=== PATIENT | female | born 1970 | race Caucasian/White ===

== ENCOUNTER 2019-06-21 13:09 | Outpatient (CLI) | payer OTHER, SELFPAY ==
--- NOTE | 2019-06-21 13:21 | MM_ITS ---
WS: [id number] BILATERAL DIGITAL SCREENING MAMMOGRAPHY WITH CAD CLINICAL INFORMATION: SCREENING HISTORY: Screening mammogram. Chronic left breast lump. COMPARISON: August 03, 2017 TECHNIQUE: Bilateral CC and MLO views. FINDINGS: Since the prior examination interval mammoplasty with breast reduction. The breasts are composed of heterogeneous fibroglandular density tissue, which can limit the detectio n of small underlying mass lesions. Interval development of linear calcifications in the anterior inf erior right breast may be related to recent mammoplasty with fat necrosis. However recommend addition al evaluation of the calcifications right breast with spot compression magnification views with marke rs placed along the surgical scars. Normal left breast. MM/[place] [id number] IMPRESSION: BI-RADS: 0-Incomplete: Need additional imaging evaluation FOLLOW UP: Need Additional Imaging
== END 2019-06-21 13:10 | disposition home or self-care (01) ==
PROVIDERS: Family Provider Family Medicine; PCP Family Medicine; Visit Provider Family Medicine
DX: Z12.31 Encounter for screening mammogram for malignant neoplasm of breast (principal)
CPT/HCPCS: 77067

== ENCOUNTER 2019-07-14 08:32 | Outpatient (CLI) | payer OTHER, SELFPAY ==
--- NOTE | 2019-07-14 08:44 | MM_ITS ---
WS: [id number] RIGHT DIGITAL MAMMOGRAPHY WITH CAD CLINICAL INFORMATION: RT BREAST CALCIFICATIONS HISTORY: Additional views COMPARISON: June 21, 2019, August 03, 2017, July 21, 2016, screening 2014 2015 TECHNIQUE: 4 views of the right breast were obtained. FINDINGS: Recent breast reduction. Scattered fibroglandular densities of the right breast. Sheetlike amorphous calcifications involving the right breast progressed from the prior examinations 2018 and earlier. These are most likely fat n ecrosis and sequelae from recent mammoplasty. These are probably benign and recommend 6 month follow- up to document stability with right diagnostic mammography with spot magnification views. MM/[place] [id number] IMPRESSION: BI-RADS: 3-Probably Benign FOLLOW UP: 6 Month Follow-up
== END 2019-07-14 08:33 | disposition home or self-care (01) ==
LOC: RADSHAW 08:42
PROVIDERS: Family Provider Family Medicine; PCP Family Medicine; Visit Provider Family Medicine
DX: R92.1 Mammographic calcification found on diagnostic imaging of breast (principal)
CPT/HCPCS: 77065

== ENCOUNTER 2020-01-15 09:25 | Outpatient (CLI) | payer OTHER, SELFPAY ==
--- NOTE | 2020-01-15 09:30 | MM_ITS ---
WS: [id number] RIGHT DIGITAL MAMMOGRAPHY WITH CAD CLINICAL INFORMATION: RT BR CALCS HISTORY: Prior mammoplasty COMPARISON: July 14, 2019, February 19, 2020, August 03, 2017, July 21, 2016, TECHNIQUE: 7 views of the right breast were obtained. FINDINGS: Recent history of breast reduction. Scattered fibroglandular densities of the right breast. Again see n are increasing sheetlike amorphous calcifications involving the right breast progressed from previo us. Again these are most likely fat necrosis and sequelae from prior mammoplasty. However, considerin g significant increase since the prior examination, recommend further evaluation with stereotactic gu ided biopsy MM/[place] [id number] IMPRESSION: BI-RADS: 4-Suspicious Finding-Biopsy Should Be Considered FOLLOW UP: Stereotactic Biopsy Recommended
== END 2020-01-15 09:26 | disposition home or self-care (01) ==
LOC: RADSHAW 09:26
PROVIDERS: PCP Family Medicine; Visit Provider Family Medicine
DX: R92.8 Other abnormal and inconclusive findings on diagnostic imaging of breast (principal); R92.1 Mammographic calcification found on diagnostic imaging of breast
CPT/HCPCS: 77065

== ENCOUNTER → 2020-02-17 15:27 | Outpatient (BNVA) | payer OTHER, SELFPAY | PROVIDERS: PCP Family Medicine; Visit Provider Family Medicine | DX: Z20.828 Contact with and (suspected) exposure to other viral communicable diseases (principal) | CPT/HCPCS: 87635 ==

== ENCOUNTER 2020-03-26 11:42 | Outpatient (CLI) | payer OTHER, SELFPAY ==
--- NOTE | 2020-03-26 11:46 | MM_ITS ---
WS: [id number] STEREOTACTIC RIGHT BREAST BIOPSY WITH VACUUM ASSISTANCE HISTORY: ABNORMAL MAMMOGRAM RT BREAST, numerous sheetlike areas of calcifications in the RIGHT breast . The most suspicious area along the inferior breast will be targeted. COMPARISON: 01/15/2020, 06/21/2019, 08/03/2017 Procedure, risks and complications were explained to the patient. Medications and prior radiographs a re reviewed. RIGHT breast calcifications are located. Calcifications are targeted in the craniocaudal projection. The skin is cleansed with ChloraPrep and anesthetized with 1% buffered lidocaine. Deeper soft tissues anesthetized with a combination of lidocaine and epinephrine. Small dermatome is made. Needle advanc ed into the RIGHT breast. Stereotactic imaging reveals appropriate positioning adjacent calcification s. Multiple vacuum-assisted core biopsies are obtained. 2 attempts at achieving adequate calcificatio ns were performed. Calcifications are seen like distribution and are pushed away during the needle in sertion. Both specimens did contain calcifications and the biopsy was thought to be adequate. Post biopsy specimen radiographs reveals numerous calcifications. Biopsy clips are placed in each cavity. Post imaging reveals good placement of the clips. No migratio n. Pressures held for approximately 15 minutes. No bleeding. Dressing applied. Patient discharged with n o complications. There is no bleeding. With any questions or complications patient is to return. MM/[place] [id number] IMPRESSION: 1. Uncomplicated RIGHT breast stereotactic biopsy. 2 separate biopsies were pe rformed to achieve adequate calcifications. 2. Specimen contains numerous calcifications. Pathology: Benign fibroadipose tissue with stromal sclerosis and microcalcifica tions. No malignancy within either specimen. RECOMMENDATION: 6 month diagnostic RIGHT mammogram.
--- NOTE | 2020-03-26 11:46 | MM_ITS ---
WS: [id number] STEREOTACTIC RIGHT BREAST BIOPSY WITH VACUUM ASSISTANCE HISTORY: ABNORMAL MAMMOGRAM RT BREAST, numerous sheetlike areas of calcifications in the RIGHT breast . The most suspicious area along the inferior breast will be targeted. COMPARISON: 01/15/2020, 06/21/2019, 08/03/2017 Procedure, risks and complications were explained to the patient. Medications and prior radiographs a re reviewed. RIGHT breast calcifications are located. Calcifications are targeted in the craniocaudal projection. The skin is cleansed with ChloraPrep and anesthetized with 1% buffered lidocaine. Deeper soft tissues anesthetized with a combination of lidocaine and epinephrine. Small dermatome is made. Needle advanc ed into the RIGHT breast. Stereotactic imaging reveals appropriate positioning adjacent calcification s. Multiple vacuum-assisted core biopsies are obtained. 2 attempts at achieving adequate calcificatio ns were performed. Calcifications are seen like distribution and are pushed away during the needle in sertion. Both specimens did contain calcifications and the biopsy was thought to be adequate. Post biopsy specimen radiographs reveals numerous calcifications. Biopsy clips are placed in each cavity. Post imaging reveals good placement of the clips. No migratio n. Pressures held for approximately 15 minutes. No bleeding. Dressing applied. Patient discharged with n o complications. There is no bleeding. With any questions or complications patient is to return. MM/[place] [id number] IMPRESSION: 1. Uncomplicated RIGHT breast stereotactic biopsy. 2 separate biopsies were pe rformed to achieve adequate calcifications. 2. Specimen contains numerous calcifications. Pathology: Benign fibroadipose tissue with stromal sclerosis and microcalcifica tions. No malignancy within either specimen. RECOMMENDATION: 6 month diagnostic RIGHT mammogram.
--- NOTE | 2020-03-26 11:46 | MM_ITS ---
WS: [id number] STEREOTACTIC RIGHT BREAST BIOPSY WITH VACUUM ASSISTANCE HISTORY: ABNORMAL MAMMOGRAM RT BREAST, numerous sheetlike areas of calcifications in the RIGHT breast . The most suspicious area along the inferior breast will be targeted. COMPARISON: 01/15/2020, 06/21/2019, 08/03/2017 Procedure, risks and complications were explained to the patient. Medications and prior radiographs a re reviewed. RIGHT breast calcifications are located. Calcifications are targeted in the craniocaudal projection. The skin is cleansed with ChloraPrep and anesthetized with 1% buffered lidocaine. Deeper soft tissues anesthetized with a combination of lidocaine and epinephrine. Small dermatome is made. Needle advanc ed into the RIGHT breast. Stereotactic imaging reveals appropriate positioning adjacent calcification s. Multiple vacuum-assisted core biopsies are obtained. 2 attempts at achieving adequate calcificatio ns were performed. Calcifications are seen like distribution and are pushed away during the needle in sertion. Both specimens did contain calcifications and the biopsy was thought to be adequate. Post biopsy specimen radiographs reveals numerous calcifications. Biopsy clips are placed in each cavity. Post imaging reveals good placement of the clips. No migratio n. Pressures held for approximately 15 minutes. No bleeding. Dressing applied. Patient discharged with n o complications. There is no bleeding. With any questions or complications patient is to return. MM/MM surgical specimen RT IMPRESSION: 1. Uncomplicated RIGHT breast stereotactic biopsy. 2 separate biopsies were pe rformed to achieve adequate calcifications. 2. Specimen contains numerous calcifications. Pathology: Benign fibroadipose tissue with stromal sclerosis and microcalcifica tions. No malignancy within either specimen. RECOMMENDATION: 6 month diagnostic RIGHT mammogram.
== END 2020-03-26 11:43 | disposition home or self-care (01) ==
LOC: RADSHAW 11:44
PROVIDERS: PCP Family Medicine; Visit Provider Family Medicine
DX: R92.8 Other abnormal and inconclusive findings on diagnostic imaging of breast (principal); R92.1 Mammographic calcification found on diagnostic imaging of breast
CPT/HCPCS: 19081; 77065; 88305

== ENCOUNTER 2020-09-23 11:24 | Outpatient (CLI) | payer OTHER, SELFPAY ==
--- NOTE | 2020-09-23 11:29 | MM_ITS ---
WS: [id number] DIAGNOSTIC RIGHT DIGITAL MAMMOGRAM WITH CAD HISTORY: RT BREAST ABNORMAL MAMMOGRAM COMPARISON: 03/26/2020, 01/15/2020, 07/14/2019 06/21/2019 Technique: CC, MLO and ML views. Spot compression RIGHT CC. Breast composition: The breasts are heterogeneously dense, which may obscure small masses. Very coar se calcifications are noted throughout the RIGHT breast. These calcifications were previously biopsie d. There is a biopsy clip noted in the medial inferior breast. These calcifications are very coarse a nd diffuse. Favor these are probably dystrophic calcifications associated with prior breast surgery o r trauma. No soft tissue mass associated with the calcifications. MM/[place] [id number] IMPRESSION: BI-RADS: 3-Probably Benign FOLLOW UP: 6 Month Follow-up These calcifications should be followed for a total of 2 years, every 6 months to document continued stability. Patient also needs a LEFT mammogram. Bilateral mammogram should be performed.
== END 2020-09-23 11:25 | disposition home or self-care (01) ==
LOC: RADSHAW 11:28
PROVIDERS: PCP Family Medicine; Visit Provider Family Medicine
DX: R92.8 Other abnormal and inconclusive findings on diagnostic imaging of breast (principal); R92.1 Mammographic calcification found on diagnostic imaging of breast
CPT/HCPCS: 77065

== ENCOUNTER 2021-03-31 10:59 | Outpatient (CLI) | payer OTHER, SELFPAY ==
--- NOTE | 2021-03-31 11:04 | MM_ITS ---
WS: [id number] BILATERAL DIGITAL DIAGNOSTIC MAMMOGRAM MAMMOGRAPHY WITH CAD CLINICAL INFORMATION: ABNORMAL MAMMOGRAM RT BREAST CALCS HISTORY: History of breast reduction. History of prior right stereotactic biopsy. COMPARISON: September 23, 2020, March 26, 2020 TECHNIQUE: Bilateral CC, MLO, and ML views. FINDINGS: The breasts are composed of heterogeneous fibroglandular density, which can limit the detection of sm all underlying mass lesions. Stable coarse calcifications throughout the right breast likely related to prior breast reduction. History of prior right stereotactic biopsy with biopsy clip in the inferio r medial breast. Recommend continued surveillance. New clusters of heterogeneous calcifications about the LEFT areola along the posterior nipple line booker ve developed since June 21, 2019. Recommend further characterization with spot magnification view s as these are new from previous. MM/[place] [id number] IMPRESSION: BI-RADS: 0-Incomplete: Need additional imaging evaluation FOLLOW UP: Need Additional Imaging Recommend LEFT diagnostic mammography with spot magnification views of the NEW calcifications.
== END 2021-03-31 11:00 | disposition home or self-care (01) ==
LOC: RADSHAW 11:02
PROVIDERS: PCP Family Medicine; Visit Provider Family Medicine
DX: R92.1 Mammographic calcification found on diagnostic imaging of breast (principal)
CPT/HCPCS: 77066

== ENCOUNTER 2021-04-10 11:02 | Outpatient (CLI) | payer OTHER, SELFPAY ==
--- NOTE | 2021-04-10 11:14 | MM_ITS ---
WS: [id number] LEFT DIGITAL MAMMOGRAPHY WITH CAD CLINICAL INFORMATION: ABNORMAL MAMMOGRAM LT BREAST COMPARISON: March 31, 2021. September 23, 2020. June 21, 2019. TECHNIQUE: 3 views of the left breast were obtained. FINDINGS: History of breast reduction. The left breast is composed of heterogeneous fibroglandular density tissue, which can limit the detec tion of small underlying mass lesions. Again seen are several new clusters of heterogeneous calcifica tions about the left areola and along the posterior nipple line. These are all new since June 21, 2019. Spot magnification views demonstrate numerous heterogeneous and somewhat amorphous clusters of calcifications. Some of these have a similar morphology and appearance compared to the diffuse right breast calcifications. These are probably benign and most likely related to prior breast reduction. Recommend 6 month follow -up to document stability for a period of 2 years. MM/[place] [id number] IMPRESSION: BI-RADS: 3-Probably Benign FOLLOW UP: 6 Month Follow-up RECOMMEND 6 MONTH FOLLOW-UP LEFT BREAST DIAGNOSTIC MAMMOGRAPHY WITH SPOT MAGNIF ICATION VIEWS
== END 2021-04-10 11:03 | disposition home or self-care (01) ==
LOC: RADSHAW 11:10
PROVIDERS: PCP Family Medicine; Visit Provider Family Medicine
DX: R92.8 Other abnormal and inconclusive findings on diagnostic imaging of breast (principal)
CPT/HCPCS: 77065

== ENCOUNTER 2021-10-22 15:15 | Outpatient (CLI) | payer OTHER, SELFPAY ==
--- NOTE | 2021-10-22 15:44 | MM_ITS ---
WS: [id number] BILATERAL 3D TOMOSYNTHESIS DIGITAL SCREENING MAMMOGRAPHY WITH CAD CLINICAL INFORMATION: SCREENING HISTORY: Screening mammogram. History of benign RIGHT breast stereotactic biopsy COMPARISON: April 10, 2021 and March 31, 2021. September 23, 2020 TECHNIQUE: Bilateral CC and MLO views. FINDINGS: History of bilateral breast reduction. The breasts are composed of heterogeneous fibroglandular density tissue, which can limit the detectio n of small underlying mass lesions. Again seen are diffuse heterogeneous RIGHT breast calcifications similar to the prior examination likely due to prior breast reduction. Stable clustered calcification s subareolar LEFT breast. Stereotactic biopsy markers inner RIGHT breast. No other suspicious findings. MM/[place] [id number] IMPRESSION: BI-RADS: 3-Probably Benign FOLLOW UP: 6 Month Follow-up Recommend 6 month follow-up bilateral diagnostic mammography to confirm stabili ty of the calcifications for at least 18-24 months. (New left-sided calcifications were noted April 10, 2021 Right-sided calcifi cations biopsied March 26, 2020)
== END 2021-10-22 15:16 | disposition home or self-care (01) ==
LOC: RAD 15:17
PROVIDERS: PCP Family Medicine; Visit Provider Family Medicine
DX: Z12.31 Encounter for screening mammogram for malignant neoplasm of breast (principal)
CPT/HCPCS: 77063; 77067

== ENCOUNTER 2022-04-09 12:40 | Outpatient (CLI) | payer OTHER, SELFPAY ==
--- NOTE | 2022-04-09 12:57 | MM_ITS ---
WS: [id number] BILATERAL 3D TOMOSYNTHESIS DIGITAL SCREENING MAMMOGRAPHY WITH CAD CLINICAL INFORMATION: R92.8 - Other abnormal and inconclusive findings on diagn... HISTORY: Six-month follow-up. History of breast reduction.. COMPARISON: October 22, 2021. April 10, 2021. March 31, 2021. September 23, 2020. TECHNIQUE: Bilateral CC and MLO views. FINDINGS: The breasts are composed of heterogeneous fibroglandular density tissue, which can limit the detectio n of small underlying mass lesions. Again seen are diffuse heterogeneous RIGHT breast calcifications similar to the prior examinations likely due to breast reduction as previously discussed. Stable clus tered calcifications subareolar LEFT breast. History of prior stereotactic biopsy RIGHT inner breast. Associated biopsy markers. No significant interval changes compared to previous. Recommend 6 month follow-up LEFT diagnostic mammography to confirm stability of the calcifications for at least 18-24 months. RIGHT breast calcifications are predominantly stable compared to March 26, 2020. MM/[place] [id number] IMPRESSION: BI-RADS: 3-Probably Benign FOLLOW UP: 6 Month Follow-up Recommend additional six-month follow-up LEFT breast diagnostic mammography to confirm stability of the subareolar clustered LEFT breast calcifications. (New left-sided calcifications were noted April 10, 2021 Right-sided calcifi cations biopsied March 26, 2020)
== END 2022-04-09 12:41 | disposition home or self-care (01) ==
LOC: RAD 12:41
PROVIDERS: PCP Family Medicine; Visit Provider Nurse Practitioner Women's Health
DX: R92.8 Other abnormal and inconclusive findings on diagnostic imaging of breast (principal); R92.1 Mammographic calcification found on diagnostic imaging of breast
CPT/HCPCS: 77062; G0279

== ENCOUNTER → 2022-10-15 08:01 | Outpatient (BNVA) | payer OTHER, SELFPAY | PROVIDERS: PCP Family Medicine; Visit Provider Student in an Organized Health Care Education/Training Program | DX: M18.0 Bilateral primary osteoarthritis of first carpometacarpal joints (principal); M77.12 Lateral epicondylitis, left elbow | CPT/HCPCS: 73080; 73130 ==

== ENCOUNTER 2022-10-29 14:59 | Outpatient (CLI) | payer OTHER, SELFPAY ==
--- NOTE | 2022-10-29 15:30 | MM_ITS ---
WS: [id number] LEFT 3D TOMOSYNTHESIS DIGITAL MAMMOGRAPHY WITH CAD CLINICAL INFORMATION: abnormal mammagram COMPARISON: April 09, 2022 TECHNIQUE: 3 views of the left breast were obtained. FINDINGS: History of bilateral breast reduction with coarse calcifications The left breast is composed of heterogeneous fibroglandular density tissue, which can limit the detec tion of small underlying mass lesions. Stable retroareolar clustered calcifications. No significant c hanges compared to 04/23. Recommend continued surveillance with six-month follow-up. Additional scatt ered calcifications LEFT breast are unchanged. No other suspicious findings. MM/[place] [id number] IMPRESSION: BI-RADS: 3-Probably Benign FOLLOW UP: 6 Month Follow-up Recommend 6 month follow-up LEFT diagnostic mammography with spot magnification views of the retroareolar calcifications LEFT side clustered subareolar calcifications were originally noted April. Recommend continued follow-up until 24 month stability
== END 2022-10-29 15:00 | disposition home or self-care (01) ==
PROVIDERS: PCP Family Medicine; Visit Provider Family Medicine
DX: R92.8 Other abnormal and inconclusive findings on diagnostic imaging of breast (principal)
CPT/HCPCS: 77061; G0279

== ENCOUNTER → 2023-02-05 08:08 | Outpatient (BNVA) | payer OTHER, SELFPAY | PROVIDERS: PCP Family Medicine; Visit Provider Family Medicine | DX: Z00.00 Encounter for general adult medical examination without abnormal findings (principal) | CPT/HCPCS: 80053; 80061; 84443 ==

== ENCOUNTER 2023-03-10 15:43 | Outpatient (CLI) | payer OTHER, SELFPAY ==
[2023-03-10 18:15] LABS: Hepatitis B Surface Antigen Non-Reactive (Nonreactive); Hepatitis C Virus Antibody Non-Reactive (Nonreactive)
[2023-04-08 10:30] LABS: HIV 1 & 2 Antibody Non-Reactive (Non-Reactiv); HIV 1 & 2 Antigen Non-Reactive (Non-Reactiv)
== END 2023-03-10 15:44 | disposition home or self-care (01) ==
PROVIDERS: PCP Family Medicine; Visit Provider Nurse Practitioner Family
DX: T14.8XXA Other injury of unspecified body region, initial encounter (principal); W26.8XXA Contact with other sharp object(s), not elsewhere classified, initial encounter; Y93.F9 Activity, other caregiving; Y92.239 Unspecified place in hospital as the place of occurrence of the external cause
CPT/HCPCS: 86803; 87340; 87806

== ENCOUNTER 2023-07-26 05:53 | Day surgery (SDC) | payer OTHER, SELFPAY ==
[2023-07-26] VITALS (11 sets, daily range): BP systolic 114–138; BP diastolic 44–88; PULSE 59–87; RESP 16–20; TEMP 36.2–36.8; O2SAT 95–100; BMI 25.6
--- NOTE | 2023-07-26 | XR_ITS ---
WS: [id number] Exam: XR finger RT min 2V [id number] Date/Time of Exam: 07/26/2023 12:00 AM Reason For Exam: CANDIDA PICS AP intraoperative limited images of the RIGHT hand are submitted. The images depict operative removal of the greater multangular. No other significant finding on this limited series.
[2023-07-26] MEDS: sodium chloride 0.9% 1,000 ML 30 ML IV (06:15)
[2023-07-26] MEDS: ketorolac 30 mg/mL INJ IVP (06:18)
[2023-07-26] MEDS: acetaminophen 1,000 MG/100 ML PIGGYBACK 400 MG IV (06:19)
[2023-07-26] MEDS: scopolamine 1.5 Patch 1 PATCH TRANSDERMA (06:21)
--- NOTE | 2023-07-26 07:01 | W.PM.OPSUD ---
Surgery/Procedure H&P Update DATE OF PROCEDURE: July 26, 2023 DATE H&P PERFORMED: 07/26/23 H&P UPDATE INFORMATION: I have reviewed H&P completed within last 30 days, I have examined patient prior to procedure and No changes to prior documentation PREOP DIAGNOSIS: Right thumb basal joint arthritis PRIMARY INDICATION FOR PROCEDURE: Right thumb basal joint arthritis PLANNED PROCEDURE: Operation Date: 07/26/23 07:00 Proposed Procedures p Riight Basal Thumb Joint Arthroplasty(Right) - Conor Mcmillan DO
[2023-07-26] MEDS: midazolam 1 mg/mL INJ 5 ML 5 MG IVP (07:05)
--- NOTE | 2023-07-26 07:14 | ANES.PREANE2 ---
Pre-Anesthetic Assessment Height/Weight: Height 1.57 m Weight 63.503 kg Temp Pulse Resp BP Pulse Ox O2 Del Method 97.4 F L 66 18 138/88 97 Room Air 07/26/23 06:05 07/26/23 06:05 07/26/23 06:05 07/26/23 06:21 07/26/23 06:05 07/26/23 06:23 Preop Diagnosis: Right thumb basal joint arthritis Operation Date: 07/26/23 07:00 Proposed Procedures p Riight Basal Thumb Joint Arthroplasty(Right) - Conor Mcmillan DO Familial anesthetic complications: None Was Beta Duke taken within 24 hours: N/A Was Clonidine taken within 24 hours: N/A Last intake: Intake Last Liquid Date 07/25/23 Last Liquid Time 19:00 Last Solid Date 07/25/23 Last Solid Time 19:00 Social No alcohol and No tobacco Exam alert, oriented x 3, clear to auscultation bilaterally and regular rate & rhythm Airway Mallampati: Class I Dentition: caps Anesthetic Plan ASA status: 1 Anesthesia: General Risk of > 500 ml blood loss (7ml/kg in children): No Medications/Allergies Home Medications Medication Instructions Recorded Confirmed Last Taken Type escitalopram oxalate 10 mg tablet 10 mg PO DAILY 07/23/23 07/23/23 07/25/23 History estradiol 0.5 mg tablet 0.5 mg PO DAILY 07/23/23 07/23/23 07/25/23 History Allergies Allergy/AdvReac Type Severity Reaction Status Date / Time No Known Allergies Allergy Verified 07/23/23 10:01 Current Medications Generic Name Dose Route Start Last Admin Trade Name Freq PRN Reason Stop Dose Admin Sodium Chloride 1,000 mls @ 30 mls/hr 07/26/23 06:00 07/26/23 06:15 Sodium Chloride 0.9% IV 07/27/23 05:59 30 mls/hr .Q24H ALISA Administration PFSH Anesthesia Medical History No pertinent past medical history neghx: htn,dm,thyroid,dvt/pe PCP: Dr. Wynn Menopause Arthritis of carpometacarpal (CMC) joint of both thumbs Surgical History Hx of breast reduction, elective (~2018) Dr. Chandan [place] History of ear surgery H/O: hysterectomy (~03/2017) Robotic assisted LAVH, BSO, Bladder repair--performed in [place] Family History Grandmother Heart disease Maternal grandmother Breast cancer Maternal great grandmother--dx age older in life Mother Diabetes Father Diabetes Denies family history of Colon cancer Ovarian cancer Hyperlipidemia Hypertension Uterine cancer Thyroid disease Stroke Data Anesthesia Cardiac Studies: No Data to Display
--- NOTE | 2023-07-26 07:15 | ANES.PROC ---
Anesthesia Procedures Procedure/Date: 07/26/23 Nerve Block ^: Nerve Block 1: Main Anesthesia: general anesthesia Time Out Performed: Yes Consent: requested by attending/covering physician, from patient, from other, risks and benefits reviewed and patient agrees to proceed Nerve block location: axillary (R) Anesthesia monitors applied: pulse oximetry, EKG, BP cuff and oxygen Nerve block position: supine Anesthetic Used: ropivicaine 0.5% (30 ml) and with decadron (4 mg) Ultrasound used to: recognize landmarks and visualize and ID brachial plexus Nerve Stimulator Used?: No Interscalene/Femoral BLK: 2 stimuplex 22 g needle used for position and inplane approach, visualize local anesthetic spread and no vascular puncture identified Injection: neg aspiration of heme Patient Tolerated Procedure: well and no complications Complications: none
[2023-07-26] MEDS: ceFAZolin 2,000 MG in sodium chloride 0.9% (plus) 50 ML 100 MG IV (07:17)
[2023-07-26] MEDS: lidocaine 1% INJ 10 mL (per mL) 5 ML XX (08:40)
[2023-07-26] MEDS: ROPivacaine 0.5% SDV 30 mL 25 MG INJECTION (08:40)
--- NOTE | 2023-07-26 08:57 | SUR.OPER ---
[id number] UPDATED SPOUSE VIA PHONE
--- NOTE | 2023-07-26 09:27 | W.PM.BPON ---
Date of Procedure: 07/26/2023 Surgeon: Conor Mcmillan DO Surveying Or Spatial Science Technician(s): Silviano Mcmillan PA-C Procedure(s) performed: Right thumb basal joint arthroplasty Right thumb APL tendon slip transfer Findings of the procedure(s): Patient was found to have severe right thumb basal joint arthritis with a pristine STT joint. She underwent procedure as planned without any issues or complications. Estimated blood loss: 5 mL Specimen(s) removed: Trapezium removed Post-operative diagnosis: Right thumb basal joint arthritis
--- NOTE | 2023-07-26 09:28 | P.OP_ITS ---
Operative Report Date of procedure: July 26, 2023 Surgeon: Conor Mcmillan DO Infrastructure Software Engineer: Silviano Mcmillan PA-C: PA was necessary for assistance in this case with hand positioning to execute the procedure, retraction and protection of neurovascular structures as well as to assist with wound closure and dressing application. Procedure: Preoperative diagnosis: Right thumb basal joint arthritis Procedure done: Right thumb?basal?joint?arthroplasty Right thumb APL tendon slip transfer Implants: Arthrex fiber lock suspension implant kit for?basal?joint?arthroplasty Surgeon: Conor Mcmillan DO Estimated blood loss: 5mL Tourniquet time: 86 min Complications: none Condition: stable Disposition: same day Brief History: Patient's been seen and worked up in the outpatient setting.? Findings consistent with a Right thumb?basal?joint?severe arthritis. This is failed conservative treatment she is underwent injections as well as bracing at this point her last injection only provided minimal relief and at this point time her only other treatment option surgical intervention of the Right thumb?basal?joint.? We talked about surgery in detail about the risk benefits complication alternatives to surgical nonsurgical treatment options.? At this point time her persistent pain is causing her significant issues.? She does understand with the?basal?joint?arthroplasty potential loss of range of motion as well as strength but ultimately this would provide her with significant pain relief.? Through shared decision making she elects proceed with surgical intervention of Right thumb?basal?joint?arthroplasty.? Once again she understands risk benefits complication alternatives to each treatment option understanding risk elects to proceed with surgery. Procedure: Patient seen evaluated in the preoperative holding area.? Consent was signed and reviewed with patient.? Correct extremity marked.? Once cleared by anesthesia patient was taken back to the operative suite.? Underwent anesthesia per the anesthesia department.? Patient was placed in supine position all bony prominences well-padded patient was properly secured to the bed.? Underwent anesthesia for the anesthesia department.? A armboard was placed to the Right upper extremity a nonsterile tourniquet applied to the Right upper arm.? Once appropriately anesthetized Right upper extremity was then prepped and draped in standard orthopedic fashion.? Final timeout performed.? Patient received appropriate preoperative antibiotics. Esmarch was used exsanguinate the Right upper extremity and tourniquet was insufflated to 250 mmHg. ?I then utilized a 15 blade in standard longitudinal fashion directly over the Right thumb?basal?joint?.? Sharp scalpel incision was made through skin only.? I then switched to Littler dissection scissors and dissected out the dorsal cutaneous branches which were protected throughout this case.? I then identified the APL and EPL tendons.? I then performed a first dorsal compartment release under direct visualization with loupe magnification.? At this point time I then mobilized the tendons with a blunt wheatie self retractor and went through this interval.? Next I was directly onto the CMC?joint?dorsal capsule.? I then subsequently utilized my dissection scissors to dissect out the radial artery which was then identified and protected by my nurseryman assistant throughout this case with a Kasdan retractor.? Once I identified the radial artery and dorsal branch I then subsequently performed my capsulotomy of the first CMC?joint?with [place] blade..? I then introduced a [place] into the arthritic space at the first CMC?joint.? This was confirmed with mini C arm to be the appropriate bone prior to performing my trapeziectomy.? The trapezium was then shelled out and its entirety with a McClamary elevator with care to protect and not injure any of my remaining carpal bone articular cartilage as well as not to damage the/injure the radial artery as it was protected throughout the case.? This was then removed and identified the FCR within the floor of my incision.? Trapeziectomy was complete and confirmed on mini C arm. At this point time I thoroughly irrigated and removed of all residual bony debris.? A [place] was placed into the STT?joint?and?joint?was inspected and this was found to be free of arthritic changes. I then subsequently plan to proceed with utilizing Arthrex fiber lock suspensioplasty kit which was then opened and then subsequently drilled into the second metacarpal base.? Once I confirm my appropriate placement with mini C arm all suture anchor.? Once this was confirmed appropriate placement I then drilled the impacted and deployed the bicortical suture anchor.? This had excellent tension and could lift the arm off of the table with its fixation.? I then subsequently identified the radial aspect of the first metacarpal and at its mid substance on the radial aspect I subsequently drilled tapped and holding the thumb in appropriate adduction with not over distraction keeping it in line with the base of the second and subsequently loaded suturetape under appropriate tension and thumb positioning keeping the thumb in adduction and appropriate length impacted this suture anchor which had excellent fixation and the excess suture was then removed.? This was then confirmed to have excellent axial stability and an appropriate suspensioplasty.? Stability and abduction were to prevent impingement and to help add with fixation& interposition within the voided space from the trapeziectomy I then identified a slip of the APL which was then harvested proximally and then weaved this through the FCR tendon twice and then tied this onto the APL tendon itself which created a soft tissue interposition as well as added appropriate abduction to the thumb with appropriate thumb position.? This was then secured with 2 horizontal mattress stitches with 4-0 FiberWire.? I then took the excess of the APL tendon and then placed this within the voided space as a interposition.? I then subsequently had the tourniquet deflated.? Hemostasis was satisfactory.? I then took some Gelfoam to add for soft tissue and interposition within the voided space and hemostasis.? I then closed the capsule with Monocryl suture.? Wound bed was once again thoroughly irrigated.? I then closed the incision with deep 3-0 Vicryl and Monocryl and Dermabond for skin.? Final x-rays with mini C arm were then taken showing stable trapeziectomy with soft tissue and suture anchor interposition.? Thumb had excellent axial stability as well as appropriate positioning.? Patient was then dressed with 4 x 4's ABD Curlex and a thumb spica splint With an Haider wrap.? Patient was awakened from anesthesia and taken to PACU in stable condition. Disposition: Patient taken to PACU in stable condition recovering well.? Patient will receive appropriate discharge instructions as well as pain medication postoperatively.? Patient will follow therapy protocol with OT hand therapy for?basal?joint?arthroplasty.? Patient and family understand agrees with current plan.? All questions answered.? We will see me in the office in 2 weeks.
--- NOTE | 2023-07-26 09:57 | PM.PACU ---
PACU note Narrative: Patient is a 53-year-old female just underwent a right thumb basal joint arthroplasty. Patient transferred to PACU in stable condition. Pain is well controlled. Splint and Dressing on hand is dry and in place. Patient's fingers are warm and well-perfused. normal cap refill under 2 seconds. Patient has normal elbow range of motion. Unable to further assess motor (wiggle fingers) and sensation due to residual localized anesthetic. Exam: awake Disposition: discharged
--- NOTE | 2023-07-26 11:00 | ANE.PACU2 ---
Inpatient post-anesthesia follow up: Airway intact: Yes Vital signs: Temperature 97.2 F Pulse Rate 68 Respiratory Rate 18 Blood Pressure 117/74 Pulse Oximetry 97 Oxygen Delivery Me thod Room Air Oxygen Flow Rate Fraction of Inspir ed Oxygen Hydration adequate: Yes Nausea and vomiting: No Pain level: 1 Mental status: Baseline
== END 2023-07-26 11:03 | disposition home or self-care (01) ==
PROVIDERS: PCP Family Medicine; Visit Provider Student in an Organized Health Care Education/Training Program
PROC: (CPT 26535; principal; 2023-07-26 07:00)
DX: M13.842 Other specified arthritis, left hand (principal)
CPT/HCPCS: 26490; 26535; 73140; 76000; C1713; J0131; J0690; J1100; J1885; J2250; J2704; J2795; J3010; J3490; J7030

== ENCOUNTER → 2023-08-10 08:18 | Outpatient (BNVA) | payer OTHER, SELFPAY | PROVIDERS: PCP Family Medicine; Visit Provider Student in an Organized Health Care Education/Training Program | DX: M18.0 Bilateral primary osteoarthritis of first carpometacarpal joints (principal); Z96.691 Finger-joint replacement of right hand | CPT/HCPCS: 73130 ==

== ENCOUNTER 2023-08-11 09:27 | Outpatient (RCR) | payer OTHER, SELFPAY | END 2023-08-31 23:59 | disposition home or self-care (01) | LOC: SOT 09:27 | PROVIDERS: PCP Family Medicine; Visit Provider Student in an Organized Health Care Education/Training Program | DX: Z47.1 Aftercare following joint replacement surgery (principal) | CPT/HCPCS: 97022; 97110; 97140; 97165; 97530; L3807 ==

== ENCOUNTER 2023-08-12 10:18 | Outpatient (CLI) | payer OTHER, SELFPAY ==
--- NOTE | 2023-08-12 10:30 | MM_ITS ---
WS: [id number] BILATERAL 3D TOMOSYNTHESIS DIGITAL DIAGNOSTIC MAMMOGRAPHY WITH CAD CLINICAL INFORMATION: 6MFU CALCS ABNORMAL MAMMO HISTORY: History of bilateral breast reduction. 6-month follow-up calcifications. COMPARISON: 04/09/2022 and 10/09/2022 multiple prior examinations dating back to 2020. TECHNIQUE: Bilateral CC, MLO, and ML views. FINDINGS: The breasts are composed of heterogeneous fibroglandular density, which can limit the detection of sm all underlying mass lesions. Stable previously described retroareolar clustered calcifications LEFT b reast. No significant changes compared to 04/10/2021. Stability is reassuring. Similar-appearing diffuse heterogeneous RIGHT breast calcifications compatible with prior breast redu ction. Prior stereotactic biopsy RIGHT inner quadrant. Associated biopsy markers. No other suspicious findings. Recommend return to annual screening mammography. IMPRESSION: MM/[place] [id number] BI-RADS: 2-Benign FOLLOW UP: 1 Year Follow-up LEFT subareolar calcifications stable compared to 04/10/2021. Recommend return t o annual screen mammography.
== END 2023-08-12 10:19 | disposition home or self-care (01) ==
LOC: RAD 10:18
PROVIDERS: PCP Family Medicine; Visit Provider Family Medicine
DX: R92.323 Mammographic fibroglandular density, bilateral breasts (principal)
CPT/HCPCS: 77062; G0279

== ENCOUNTER 2023-09-01 06:00 | Outpatient (RCR) | payer OTHER, SELFPAY | END 2023-10-01 23:59 | disposition home or self-care (01) | LOC: SOT 06:00 | PROVIDERS: PCP Family Medicine; Visit Provider Student in an Organized Health Care Education/Training Program | DX: Z47.1 Aftercare following joint replacement surgery (principal) | CPT/HCPCS: 97022; 97110; 97140 ==

== ENCOUNTER 2023-10-02 06:00 | Outpatient (RCR) | payer OTHER, SELFPAY | END 2023-10-31 23:59 | disposition home or self-care (01) | LOC: SOT 06:00 | PROVIDERS: PCP Family Medicine; Visit Provider Student in an Organized Health Care Education/Training Program | DX: Z47.1 Aftercare following joint replacement surgery (principal); Z96.691 Finger-joint replacement of right hand | CPT/HCPCS: 97022; 97110; 97140 ==

== ENCOUNTER 2023-10-13 14:59 | Outpatient (CLI) | payer OTHER, SELFPAY ==
[2023-10-13 16:24] LABS: Hepatitis B Surface Antigen Non-Reactive (Nonreactive)
[2023-10-13 16:59] LABS: Hepatitis C Virus Antibody Non-Reactive (Nonreactive)
[2023-10-13 17:45] LABS: HIV 1 & 2 Antibody Non-Reactive (Non-Reactiv); HIV 1 & 2 Antigen Non-Reactive (Non-Reactiv)
== END 2023-10-13 15:00 | disposition home or self-care (01) ==
LOC: LAB 15:01
PROVIDERS: PCP Family Medicine; Visit Provider Family Medicine
DX: Z01.89 Encounter for other specified special examinations (principal); W46.0XXA Contact with hypodermic needle, initial encounter
CPT/HCPCS: 86803; 87340; 87806

== ENCOUNTER 2023-10-24 08:53 | Emergency (ER) | payer OTHER, SELFPAY ==
[2023-10-24 09:06] VITALS: BP 159/99; PULSE 59; RESP 18; TEMP 36.6; O2SAT 98; BMI 25.6
--- NOTE | 2023-10-24 09:13 | XRR_ITS ---
PROCEDURE INFORMATION: Exam: XR Right Hand Exam date and time: 10/24/2023 9:27 AM Age: 53 years old Clinical indication: Pain; Hand; Right; Prior surgery; Surgery date: 1-6 months; Surgery type: 1st mp joint surgery for arthritic joint 07/26/2023 TECHNIQUE: Imaging protocol: Radiologic exam of the right hand. Views: 3 or more views. COMPARISON: No relevant prior studies available. FINDINGS: Bones/joints: Similar prominent DJD at the articulations of the basilar aspect of the 1st and 2nd metacarpals. Interval surgical resection of trapezium bone without gross complication. Similar [id number] DJD at the articulation of the trapezoid with the scaphoid bone. Mild subchondral cyst formation throughout the carpus. No acute fracture or dislocation Soft tissues: Normal. XR/XR hand RT min 3V* [id number] IMPRESSION: No acute findings. Postoperative and chronic changes as above.
[2023-10-24 09:25] VITALS: BP 133/88; PULSE 61; O2SAT 98
--- NOTE | 2023-10-24 09:51 | W.ED.EXTPRO ---
HPI - Extremity Problem General: Chief complaint: Extremity Problem,Nontraumatic Stated complaint: Right hand swelling Time Seen by Provider: 10/24/23 09:12 Source: patient Mode of arrival: ambulatory History of Present Illness: 53-year-old female that had surgery on her thumb in July states she been doing physical therapy and doing well states over the last week she has had some increased swelling at the base, along with pain she states she is lost some range of motion in her therapy. She denies any fevers denies any injury Associated symptoms: Deny chest pain, fever(s) or rash Review of Systems Const: Denies: fever(s), chills, body aches or change in appetite ENMT: Denies: throat pain or dental pain Card: Denies: chest pain Resp: Denies: dyspnea GI: Denies: abdominal pain, nausea, vomiting or diarrhea Musc: Reports: extremity pain; Denies: neck pain or back pain Skin/Breast: Denies: rash Neuro: Denies: headache(s) PFSH ED PFSH: Medical History No pertinent past medical history neghx: htn,dm,thyroid,dvt/pe PCP: Dr. Wynn Menopause Arthritis of carpometacarpal (CMC) joint of both thumbs Surgical History Hx of breast reduction, elective (~2018) Dr. Chandan [place] History of ear surgery H/O: hysterectomy (~03/2017) Robotic assisted LAVH, BSO, Bladder repair--performed in [place] Family History Grandmother Heart disease Maternal grandmother Breast cancer Maternal great grandmother--dx age older in life Mother Diabetes Father Diabetes Denies family history of Colon cancer Ovarian cancer Hyperlipidemia Hypertension Uterine cancer Thyroid disease Stroke Social History Smoking and tobacco/nicotine status: never used tobacco/nicotine Physical Exam Const: COMMON NORMALS: no acute distress, patient oriented x3 and healthy appearing HENMT: COMMON NORMALS: normocephalic and atraumatic HEAD & SCALP: normocephalic and atraumatic Neck/C-Spine: COMMON NORMALS: full ROM and supple Chest: COMMONS NORMALS: normal inspection of the chest Resp: COMMON NORMALS: normal respiratory effort Extremity: NARRATIVE EXTREMITY EXAM: Some slight swelling over base of right thumb small abrasion no warmth to touch no erythema Neuro: COMMON NORMALS: patient oriented x3, moves all extremities and no focal motor deficits Psych: COMMON NORMALS: mental status grossly normal, Normal thought process present and cooperative THOUGHT PROCESS: Normal thought process present Skin: COMMON NORMALS: no rashes or lesions noted and no wounds GENERAL SKIN EXAM: no rashes or lesions noted Course Vital Signs: Vital signs: Vital Signs Temperature 97.8 F 10/24/23 10:11 Pulse Rate 61 10/24/23 10:11 Respiratory Rate 18 10/24/23 10:11 Blood Pressure 133/88 10/24/23 10:11 Pulse Oximetry 98 10/24/23 10:11 Oxygen Delivery Me thod Room Air 10/24/23 09:25 MDM - Extremity (Nontraumatic) Medical Decision Making Patient presents here with right hand pain with some swelling to base of right no signs of infection did speak to her orthopedic surgeon she is to wear her brace we will start her on Mobic and prednisone he is going to follow-up with her next week she is return if worsening she understands agrees plan Medical Records I reviewed the patient's medical records. Lab Data I reviewed the patient's lab results. All radiology interpretation(s) finalized by discharge Discharge Plan Discharge Patient Disposition: Home Clinical Impression: History of arthroplasty of finger of right hand, Hand pain, right Condition: Stable Prescriptions: New prednisone 50 mg tablet 50 mg PO DAILY Qty: 5 0RF meloxicam 7.5 mg tablet 7.5 mg PO DAILY Qty: 10 0RF No Action hydrocodone-acetaminophen 5-325 mg tablet 1 tab PO Q6H PRN (Reason: pain) 5 Days Qty: 20 0RF estradiol 0.5 mg tablet 0.5 mg PO DAILY Rx Instructions: TAKE 1 TABLET BY MOUTH EVERY DAY escitalopram oxalate 10 mg tablet 10 mg PO DAILY Rx Instructions: TAKE ONE TABLET BY MOUTH EVERY DAY Discharge Orders: Discharge ED (Routine); Ordered 10/24/23 Ordered By: Jitendra Fontanez Referrals: Conor Mcmillan DO [Physician] - 1-3 days Discharge Diet: Advance as tolerated Discharge Activity: Resume usual activity Patient Instructions: Arthralgia (ED) Coding Level of Care Code ED Bed Control Specialist for Evin Sevilla
[2023-10-24] MEDS: naproxen 500 mg Tablet PO (09:59)
[2023-10-24] MEDS: predniSONE 20 mg Tablet 60 MG PO (10:06)
[2023-10-24 10:11] VITALS: BP 133/88; PULSE 61; RESP 18; TEMP 36.6; O2SAT 98
== END 2023-10-24 10:13 | disposition home or self-care (01) ==
PROVIDERS: Emergency Provider Emergency Medicine; PCP Family Medicine
DX: M79.641 Pain in right hand (principal); Z96.691 Finger-joint replacement of right hand
CPT/HCPCS: 73130; 99283; J7512

== ENCOUNTER → 2023-12-28 07:57 | Outpatient (BNVA) | payer OTHER, SELFPAY | PROVIDERS: PCP Family Medicine; Visit Provider Student in an Organized Health Care Education/Training Program | DX: Z96.691 Finger-joint replacement of right hand (principal); Z98.890 Other specified postprocedural states | CPT/HCPCS: 73130 ==

== ENCOUNTER → 2024-07-20 09:32 | Outpatient (BNVA) | payer OTHER, SELFPAY | PROVIDERS: PCP Family Medicine; Visit Provider Nurse Practitioner Women's Health | DX: Z13.228 Encounter for screening for other metabolic disorders (principal); R53.83 Other fatigue; Z13.1 Encounter for screening for diabetes mellitus; Z13.0 Encounter for screening for diseases of the blood and blood-forming organs and certain disorders involving the immune mechanism; Z78.0 Asymptomatic menopausal state; Z79.890 Hormone replacement therapy; Z13.220 Encounter for screening for lipoid disorders | CPT/HCPCS: 80053; 80061; 82306; 82670; 82728; 83036; 83540; 85025 ==

== ENCOUNTER 2024-08-21 12:33 | Outpatient (CLI) | payer OTHER, SELFPAY ==
--- NOTE | 2024-08-21 13:00 | MM_ITS ---
WS: [id number] BILATERAL 3D TOMOSYNTHESIS DIGITAL SCREENING MAMMOGRAPHY WITH CAD CLINICAL INFORMATION: Z12.31 - Encounter for screening mammogram for malignant ... HISTORY: Screening mammogram. No current complaints. COMPARISON: 2023 TECHNIQUE: Bilateral CC and MLO views. FINDINGS: History of bilateral breast reduction The breasts are composed of heterogeneous fibroglandular density tissue, which can limit the detection of small underlying mass lesions. No suspicious mass, asymmetry, calcifications, or architectural distortion. No evidence of malignancy. Similar-appearing dystrophic calcifications bilaterally RIGHT g reater than LEFT. Stable dense breast tissue upper outer LEFT breast. Prior stereotactic biopsy RIGHT inner quadrant with associated biopsy markers. MM/MM scr BI tomosynthesis [id number] IMPRESSION: DENSITY: The breasts are heterogeneously dense, which may obscure small masses. BI-RADS: 2 - Benign FOLLOW UP: 1 Year Follow-up Recommend return to annual screening mammography.
--- NOTE | 2024-08-21 13:30 | XR_ITS ---
WS: [id number] SCREENING DEXA SCAN [facility] CLINICAL INFORMATION: Z78.0 - Asymptomatic menopausal state COMPARISON: None. FINDINGS: The L1-L4 bone mineral density measures 1.223 g/cm2. This corresponds to a T score score of 0.4 and Z score of 1.3. Left femoral neck bone mineral density measures 1.020 g/cm2. This corresponds to a T score of 0.1 and Z score of 0.8. Right femoral neck bone mineral density measures 1.002 g/cm2. This corresponds to a T score 0.0of and Z score of 0.7. Mean femoral neck bone mineral density measures 1.011 g/cm2. This corresponds to a T score of 0.0 and Z score of 0.7. XR/XR DEXA axial skeleton* [id number] IMPRESSION: Normal bone mineralization. Patient's FRAX calculated 10 year probability for major osteoporotic fracture i s 6.8% and osteoporotic hip fracture is 0.5%.
== END 2024-08-21 12:34 | disposition home or self-care (01) ==
PROVIDERS: PCP Family Medicine; Visit Provider Nurse Practitioner Women's Health
DX: Z12.31 Encounter for screening mammogram for malignant neoplasm of breast (principal); Z78.0 Asymptomatic menopausal state; Z13.820 Encounter for screening for osteoporosis; R92.333 Mammographic heterogeneous density, bilateral breasts; R92.1 Mammographic calcification found on diagnostic imaging of breast; N64.89 Other specified disorders of breast
CPT/HCPCS: 77063; 77067; 77080